=== PATIENT | male | born 1975 | race Caucasian/White ===

== ENCOUNTER 2018-03-02 16:42 | Emergency (ER) ==
[2018-03-02 16:47] VITALS: BP 168/104; TEMP 96.2; BMI 36.6
[2018-03-02] MEDS ORDERED: LIDOCAINE HCL 1% SDV SUBCUT STA (18:09)
[2018-03-02] MEDS ORDERED: KEFLEX PO STA (18:35)
[2018-03-02] MEDS ORDERED: BOOSTRIX IM ONE (18:35)
--- NOTE | 2018-03-02 19:17 | ED.PDOC ---
General ED Provider: Dr. REMINGTON PELAEZ Chief Complaint: Finger Laceration Stated Complaint: While working sustained laceration to distal palmar aspect of LT INDEX finger on a piece of sheet metal Time Seen by Physician: 16:50 Mode of Arrival: Walk-In Information Source: Patient Exam Limitations: No limitations Nursing and Triage Documentation Reviewed and Agree: Yes Does patient meet sepsis criteria?: No If yes, has appropriate treatment been initiated?: No System Inflammatory Response Syndrome: Not Applicable Sepsis Protocol: For patient's 13 years and over: Temp is 96.8 and below OR 101 and greater Pulse >90 BPM Resp >20/minute Acutely Altered Mental Status Are patient's symptoms suggestive of a new infection, such as: -Pneumonia -Skin, Soft Tissue -Endocarditis -UTI -Bone, Joint Infection -Implantable Device -Acute Abdominal Infection -Wound Infection -Meningitis -Blood Stream Catheter Infection -Unknown Skin Complaint Exam - Laceration/Abrasion/Hand Complaint/Exam Location of Injury: Left, Digit #1 Mechanism of Injury: Laceration Onset/Duration: 1.5 hr Symptoms Are: Still present Initial Severity: Moderate Current Severity: Mild Aggravating: Movement Alleviating: None Associated Signs and Symptoms: Denies: Fever, Chills, Erythema, Numbness, Tingling Differential Diagnoses: Laceration Review of Systems - Review Of Systems Constitutional: Reports: No symptoms Eyes: Reports: No symptoms Ears, Nose, Mouth, Throat: Reports: No symptoms Respiratory: Reports: No symptoms Cardiac: Reports: No symptoms GI: Reports: No symptoms : Reports: No symptoms Musculoskeletal: Reports: No symptoms Skin: Reports: No symptoms Neurological: Reports: No symptoms Endocrine: Reports: No symptoms Hematologic/Lymphatic: Reports: No symptoms All Other Systems: Reviewed and Negative Past Medical History - Past Medical History Previously Healthy: Yes Endocrine: Reports: None Cardiovascular: Reports: None Respiratory: Reports: None Hematological: Reports: None Gastrointestinal: Reports: None Genitourinary: Reports: None Neuro/Psych: Reports: None Musculoskeletal: Reports: None Cancer: Reports: None - Surgical History General Surgical History: Reports: None - Family History Family History: Reports: None - Social History Smoking Status: Never smoker Hx Substance Use: No Alcohol Screening: None - Immunizations Tetanus Shot up to Date: No Physical Exam - Physical Exam Appearance: Well-appearing, No pain distress, Well-nourished Eyes: JAC, EOMI, Conjunctiva clear ENT: Ears normal, Nose normal, Oropharynx normal Respiratory: Airway patent, Breath sounds clear, Breath sounds equal, Respirations nonlabored Cardiovascular: RRR, Pulses normal, No rub, No murmur GI/: Soft, Nontender, No masses, Bowel sounds normal, No Organomegaly Musculoskeletal: Normal strength, ROM intact, No edema, No calf tenderness Skin: Warm (laceration tip of lt index finger), Dry, Normal color Neurological: Sensation intact, Motor intact, Reflexes intact, Cranial nerves intact, Alert, Oriented Psychiatric: Affect appropriate, Mood appropriate Procedures - Laceration/Wound Repair Lt Index finger Wound Length (cm): 1.5 -2 c m Wound Width: 2mm Wound Explored: Clean Wound Irrigated: Yes Wound Prep: Saline, Hibiclens, Betadine Anesthesia: Lidocaine Wound Repaired With: Sutures Suture Size and Type: 4-0 nylon Number of Sutures: 3 Layer Closure?: No Sterile Dressing Applied?: Yes Critical Care Note - Critical Care Note Total Time (mins): 0 Course - Course Orders, Labs, Meds: Lab Review 03/02/18 18:53 Urine Opiates Screen Negative Ur Oxycodone Screen Negative Urine Methadone Screen Negative Ur Propoxyphene Screen Negative Ur Barbiturates Screen Negative U Tricyclic Antidepress Negative Ur Phencyclidine Scrn Negative Ur Amphetamine Screen Negative U Methamphetamines Scrn Negative U Benzodiazepines Scrn Negative Urine Cocaine Screen Negative U Cannabinoids Screen Negative Orders Category Date Time Status URINE DRUG SCREEN (RAPID FOR ED) [DRUG SCREEN, URINE, LAB 03/02/18 18:53 Completed RAPID] Stat Cephalexin [Keflex] MEDS 03/02/18 18:35 Discontinued 500 mg PO ONCE STA Diphth,Pertuss(Acell),Tet Vac [Boostrix] MEDS 03/02/18 18:35 Discontinued 0.5 ml IM .ONCE ONE Lidocaine HCl/Pf [Lidocaine HCl 1% Sdv] MEDS 03/02/18 18:09 Discontinued 5 ml SUBCUT ONCE STA Medications Discontinued Medications Generic Name Dose Route Start Last Admin Trade Name Freq PRN Reason Stop Dose Admin Cephalexin 500 mg 03/02/18 18:35 03/02/18 18:48 Keflex PO 03/02/18 18:36 500 mg ONCE STA Administration Diphtheria/Pertussis/Tetanus Vacc 0.5 ml 03/02/18 18:35 03/02/18 18:44 Boostrix IM 03/02/18 18:36 0.5 ml .ONCE ONE Administration Lidocaine HCl 5 ml 03/02/18 18:09 03/02/18 18:29 Lidocaine Hcl 1% Sdv SUBCUT 03/02/18 18:10 5 ml ONCE STA Administration Vital Signs: Temp Pulse Resp BP Pulse Ox 03/02/18 16:42 96.2 F L 77 18 168/104 H 96 Departure - Departure Time of Disposition: 19:15 Disposition: HOME SELF-CARE Discharge Problem: Laceration of index finger of left hand without complication Instructions: Care For Your Stitches (ED), Laceration (ED) Condition: Good Pt referred to PMD for follow-up: Yes (1 week) IPMP verified?: No Additional Instructions: Take meds as directed FOllow wound care instructions Prescriptions: Cephalexin [Keflex] 500 mg PO TID #21 capsule Allergies/Adverse Reactions: Allergies No Known Allergies Allergy (Verified 03/02/18 16:47) Home Medications: Ambulatory Orders Cephalexin [Keflex] 500 mg PO TID #21 capsule 03/02/18 Disposition Discussed With: Patient
== END 2018-03-02 19:27 | disposition home or self-care (01) ==
LOC: ED 16:42
DX: S61.211A Laceration without foreign body of left index finger without damage to nail, initial encounter (principal); W26.8XXA Contact with other sharp object(s), not elsewhere classified, initial encounter; Y99.0 Civilian activity done for income or pay
CPT/HCPCS: 80306; 90471; 90715; 96372; 99283